=== PATIENT | male | born 1960 | race Two or more races ===

== ENCOUNTER → 2021-04-13 | Outpatient (CLI) | payer BC ==
[2021-04-13 09:47] LABS: Alanine Aminotransferase 30 U/L (16-61); Aspartate Aminotransferase 15 U/L (15-37); Cholesterol 213 mg/dL (< 200); HDL Cholesterol 38 mg/dL (40-59); LDL Cholesterol 148 mg/dL (< 100); Triglycerides 177 mg/dL (< 150)
[2021-04-13 10:18] LABS: Urine Bacteria NONE SEEN /hpf (None Seen); Urine Blood Negative /uL (Negative); Urine Mucus FEW (None Seen); Urine Specific Gravity 1.029 (1.001-1.035); Urine WBC 2 /hpf (0 - 3)
== END | disposition home or self-care (01) ==
LOC: LAB 08:43
PROVIDERS: ATTEND Internal Medicine
DX: E78.5 Hyperlipidemia, unspecified (principal); E11.9 Type 2 diabetes mellitus without complications
CPT/HCPCS: 36415; 80061; 81001; 83036; 84450; 84460

== ENCOUNTER → 2022-01-30 | Outpatient (CLI) | payer BC | END | disposition home or self-care (01) | LOC: LAB 09:44 | PROVIDERS: ATTEND Internal Medicine | DX: R51.9 Headache, unspecified (principal); Z86.16 Personal history of COVID-19 | CPT/HCPCS: 36415; 82565; 84520 ==